=== PATIENT | female | born 1995 | race Caucasian/White ===

== ENCOUNTER 2017-11-30 15:42 | Emergency (ER) | payer BC ==
[~2017-11-30] VITALS: Ht 170.2 cm; Wt 108.8 kg
[2017-11-30 15:52] VITALS: TEMP 36.7; Ht 170.2 cm; Wt 108.8 kg
[2017-11-30] MEDS ORDERED: MoRPHine SULFATE 4 MG/ML 1 ML CARP\\VIAL IV STA (16:08)
[2017-11-30] MEDS ORDERED: SODIUM CHLORIDE 0.9% 1000ML 1,000 ML IV STA (16:08)
[2017-11-30] MEDS ORDERED: KETOROLAC TROMETHAMINE 30 MG/ML VIAL IV STA (16:08)
[2017-11-30] MEDS ORDERED: ONDANSETRON INJ 2 MG/ML 2 ML VIAL IV STA (16:08)
[2017-11-30] MEDS ORDERED: MoRPHine SULFATE 4 MG/ML 1 ML CARP\\VIAL IV PRN (16:15)
[2017-11-30 16:54] LABS: BASO % 0.2 %; BASO ABS # 0.02 K/uL (0-0.2); EOS % 0.5 %; EOS ABS # 0.06 K/uL (0-0.5); HEMATOCRIT 36.4 % (37-47); HEMOGLOBIN 11.7 g/dL (12.0-16.0); IG# 0.04 K/uL (0.00-0.02); LYMPH % 14.4 %; LYMPH ABS # 1.69 K/uL (1.2-3.4); MEAN CELL VOLUME 82.9 fL (80-100); MEAN CORPUSCULAR HEMOGLOBIN 26.7 pg (25-34); MEAN CORPUSCULAR HGB CONC 32.1 g/dl (32-36); MEAN PLATELET VOLUME 9.7 fL (7.4-10.4); MONO % 6.6 %; MONO ABS # 0.78 K/uL (0.11-0.59); NEUT ABS # 9.17 K/uL (1.4-6.5); PLATELET COUNT 364 K/uL (130-400); RED CELL DISTRIBUTION WIDTH CV 14.6 % (11.5-14.5); RED CELL DISTRIBUTION WIDTH SD 44.4 fL (36.4-46.3); WHITE BLOOD COUNT 11.76 K/uL (4.8-10.8)
[2017-11-30 17:19] LABS: CALCIUM 8.9 mg/dl (8.5-10.1); CREATININE 0.66 mg/dl (0.60-1.20); POTASSIUM 3.5 mmol/L (3.5-5.1); TOTAL PROTEIN 7.6 gm/dl (6.4-8.2)
--- NOTE | 2017-11-30 17:24 | DIAGNOSTIC IMAGING REPORT ---
ABDOMEN AND PELVIS CT WITHOUT CONTRAST CT DOSE: 1782.36 mGy.cm HISTORY: Right flank pain. EVALUATE FLANK PAIN/HEMATURIA TECHNIQUE: Multiaxial CT images of the abdomen and pelvis were performed without the use of intravenous and oral contrast according to the standard department stone protocol. A dose lowering technique was utilized adhering to the principles of ALARA. COMPARISON STUDY: None. FINDINGS: There is a 3 mm obstructing stone within the distal right ureter on image 165. This results in mild right hydroureteronephrosis. The bladder is unremarkable. No left-sided hydronephrosis. There are single punctate bilateral renal calculi. The lung bases are clear. No pneumoperitoneum. No pneumatosis. Bilateral L5 spondylolysis. The unenhanced liver, spleen, adrenal glands, gallbladder, and pancreas are unremarkable. No retroperitoneal lymphadenopathy. The uterus and bilateral adnexa are unremarkable. A tampon is noted. Suboptimal evaluation for bowel pathology due to the lack of intravenous and oral contrast. However, there is no definite bowel wall thickening or obstruction. Normal appendix. IMPRESSION: 1. A 3 mm obstructing stone within the distal right ureter resulting in mild right hydroureteronephrosis. 2. Bilateral nephrolithiasis. Electronically signed by: Praveen Watts M.D. 11/30/2017 5:23 PM Dictated Date/Time: 11/30/2017 5:18 PM
[2017-11-30] MEDS ORDERED: BCPILLS PO (17:41)
[2017-11-30] MEDS ORDERED: ONDA4TAB10 SL (17:48)
[2017-11-30] MEDS ORDERED: OXYC-90 PO (17:48)
[2017-11-30 17:52] VITALS: BP 126/69; PULSE 76; O2SAT 96
--- NOTE | 2017-11-30 21:30 | EMERGENCY ROOM VISIT NOTE ---
History First contact with patient: 15:57 Chief Complaint: BACK PAIN Stated Complaint: BACK PAIN, SIDE PAIN History of Present Illness The patient is a 22 year old female who presents to the Emergency Room with complaints of intermittent sharp right flank pain. The patient reports that her pain started on Thursday, and reports that it was severe at that time with nausea and vomiting. The patient reports that the pain did get better over the weekend, but now the pain is increasing again today. The patient reports right lower back pain that radiates around to the groin. She has not noticed any difficulty with urinating. Patient is currently menstruating. She denies . She has not noticed any change in stool consistency or color. She denies any pain extending into the left abdomen, right upper abdomen, chest or neck. The patient denies any prior history of kidney stones or ovarian cysts. She rates her discomfort an 8 out of 10. She has no alleviating or aggravating factors for her pain. Review of Systems HEENT: Denies dizziness, visual problems, hearing loss, tinnitus. Denies difficulty swallowing or oral lesions. PULMONARY: Denies cough, shortness of breath, sputum production or hemoptysis. CARDIOVASCULAR: Denies chest pain, palpitations, dyspnea on exertion, orthopnea or peripheral edema. GASTROINTESTINAL: Denies diarrhea or constipation, otherwise see HPI. GENITOURINARY: Denies dysuria, frequency, urgency or nocturia. NEUROLOGIC: Denies history of epilepsy, CVA, TIA or chronic headaches. MUSCULOSKELETAL: Denies history of joint tenderness/swelling. SKIN: Denies rashes or lesions. PSYCHIATRIC: Denies history of depression or mental illness. ENDOCRINE: Denies history of diabetes or thyroid disorders. Past Medical/Surgical History Medical Problems: (1) No significant past medical history Surgical Problems: (1) No history of previous surgery Social History Smoking Status: Never Smoker Alcohol Use: none Marital Status: Housing Status: lives with family Occupation Status: employed Current/Historical Medications Scheduled Control Pills ( Control Pills), 1 TAB PO DAILY Ondasetron Odt (Zofran Odt), 4 MG SL Q6H Scheduled PRN Oxycodone Ir (Roxicodone Ir), 1 TAB PO Q4H PRN for Pain Physical Exam Vital Signs Date Time Temp Pulse Resp B/P (MAP) Pulse Ox O2 Delivery O2 Flow Rate FiO2 11/30/17 17:52 76 18 126/69 96 Room Air 7/30/18 15:52 36.7 71 19 142/85 97 Room Air Physical Exam CONSTITUTIONAL: Obese female, alert and oriented X 3 with positive affect. Patient appears in mild to moderate discomfort. HEENT: Normocephalic, atraumatic. Pupils equal, round and reactive. No scleral icterus or conjunctival injection/pallor. NECK: Full active range of motion without discomfort. No JVD or carotid bruits. RESPIRATORY: Clear to auscultation bilaterally with no wheezing, crackles, rhonchi or stridor. CARDIOVASCULAR: Regular rate and rhythm with no murmurs, rubs or gallops. GASTROINTESTINAL: Bowel sounds present in all quadrants. Patient has no significant abdominal tenderness to palpation. Negative Stringer sign. Negative McBurney's point tenderness. No rigidity, guarding or rebound. Negative CVA tenderness. MUSCULOSKELETAL: Full range of motion of all joints without discomfort. INTEGUMENTARY: No rash or other significant dermatologic conditions noted. HEMATOLOGIC: No ecchymosis or petechiae appreciated. NEUROLOGIC: No focal neurologic deficits noted. Medical Decision & Procedures ER Provider Diagnostic Interpretation: Noncontrast CT of the abdomen and pelvis shows a 3 mm distal right ureteral calculus with mild hydroureteronephrosis. No obstruction or other acute intra- abdominal findings noted. Additional bilateral renal calculi are noted. Radiologist report is as follows: ABDOMEN AND PELVIS CT WITHOUT CONTRAST CT DOSE: 1782.36 mGy.cm HISTORY: Right flank pain. EVALUATE FLANK PAIN/HEMATURIA TECHNIQUE: Multiaxial CT images of the abdomen and pelvis were performed without the use of intravenous and oral contrast according to the standard department stone protocol. A dose lowering technique was utilized adhering to the principles of ALARA. COMPARISON STUDY: None. FINDINGS: There is a 3 mm obstructing stone within the distal right ureter on image 165. This results in mild right hydroureteronephrosis. The bladder is unremarkable. No left-sided hydronephrosis. There are single punctate bilateral renal calculi. The lung bases are clear. No pneumoperitoneum. No pneumatosis. Bilateral L5 spondylolysis. The unenhanced liver, spleen, adrenal glands, gallbladder, and pancreas are unremarkable. No retroperitoneal lymphadenopathy. The uterus and bilateral adnexa are unremarkable. A tampon is noted. Suboptimal evaluation for bowel pathology due to the lack of intravenous and oral contrast. However, there is no definite bowel wall thickening or obstruction. Normal appendix. IMPRESSION: 1. A 3 mm obstructing stone within the distal right ureter resulting in mild right hydroureteronephrosis. 2. Bilateral nephrolithiasis. Laboratory Results 11/30/17 16:27 Red Blood Count 4.39, Mean Corpuscular Volume 82.9, Mean Corpuscular Hemoglobin 26.7, Mean Corpuscular Hemoglobin Concent 32.1, Mean Platelet Volume 9.7, Neutrophils (%) (Auto) 78.0, Lymphocytes (%) (Auto) 14.4, Monocytes (%) (Auto) 6.6, Eosinophils (%) (Auto) 0.5, Basophils (%) (Auto) 0.2, Neutrophils # (Auto) 9.17, Lymphocytes # (Auto) 1.69, Monocytes # (Auto) 0.78, Eosinophils # (Auto) 0.06, Basophils # (Auto) 0.02 11/30/17 16:27 Test 11/30/17 16:27 11/30/17 16:50 White Blood Count 11.76 K/uL (4.8-10.8) Red Blood Count 4.39 M/uL (4.2-5.4) Hemoglobin 11.7 g/dL (12.0-16.0) Hematocrit 36.4 % (37-47) Mean Corpuscular Volume 82.9 fL (80-100) Mean Corpuscular Hemoglobin 26.7 pg (25-34) Mean Corpuscular Hemoglobin Concent 32.1 g/dl (32-36) Platelet Count 364 K/uL (130-400) Mean Platelet Volume 9.7 fL (7.4-10.4) Neutrophils (%) (Auto) 78.0 % Lymphocytes (%) (Auto) 14.4 % Monocytes (%) (Auto) 6.6 % Eosinophils (%) (Auto) 0.5 % Basophils (%) (Auto) 0.2 % Neutrophils # (Auto) 9.17 K/uL (1.4-6.5) Lymphocytes # (Auto) 1.69 K/uL (1.2-3.4) Monocytes # (Auto) 0.78 K/uL (0.11-0.59) Eosinophils # (Auto) 0.06 K/uL (0-0.5) Basophils # (Auto) 0.02 K/uL (0-0.2) RDW Standard Deviation 44.4 fL (36.4-46.3) RDW Coefficient of Variation 14.6 % (11.5-14.5) Immature Granulocyte % (Auto) 0.3 % Immature Granulocyte # (Auto) 0.04 K/uL (0.00-0.02) Anion Gap 7.0 mmol/L (3-11) Est Creatinine Clear Calc Drug Dose 172.8 ml/min Estimated GFR () 147.4 Estimated GFR (Non- 127.2 BUN/Creatinine Ratio 15.8 (10-20) Calcium Level 8.9 mg/dl (8.5-10.1) Total Bilirubin 0.4 mg/dl (0.2-1) Aspartate Amino Transf (AST/SGOT) 14 U/L (15-37) Alanine Aminotransferase (ALT/SGPT) 18 U/L (12-78) Alkaline Phosphatase 66 U/L (45-117) Total Protein 7.6 gm/dl (6.4-8.2) Albumin 4.0 gm/dl (3.4-5.0) Globulin 3.6 gm/dl (2.5-4.0) Albumin/Globulin Ratio 1.1 (0.9-2) Lipase 109 U/L (73-393) Urine Color YELLOW Urine Appearance CLEAR (CLEAR) Urine pH 6.0 (4.5-7.5) Urine Specific Sterling 1.025 (1.000-1.030) Urine Protein NEG (NEG) Urine Glucose (UA) NEG (NEG) Urine Ketones NEG (NEG) Urine Occult Blood 3+ (NEG) Urine Nitrite NEG (NEG) Urine Bilirubin NEG (NEG) Urine Urobilinogen NEG (NEG) Urine Leukocyte Esterase NEG (NEG) Urine WBC (Auto) 1-5 /hpf (0-5) Urine RBC (Auto) >30 /hpf (0-4) Urine Hyaline Casts (Auto) 1-5 /lpf (0-5) Urine Epithelial Cells (Auto) 5-10 /lpf (0-5) Urine Bacteria (Auto) NEG (NEG) Urine Test NEG (NEG) The above labs were reviewed. Urinalysis is not suggestive of infection. 3+ hematuria is likely secondary to her stone and current menses. A mild leukocytosis is noted. Partial renal profile, LFTs and lipase are otherwise normal. Medications Administered Medications (Trade) Dose Ordered Sig/Naz Route Start Time Stop Time Status Last Admin Dose Admin Sodium Chloride 1,000 ml @ 999 mls/hr Q1H1M STAT IV 11/30/17 16:08 11/30/17 17:08 DC 11/30/17 16:51 999 MLS/HR Ketorolac Tromethamine (Toradol Inj) 30 mg NOW STAT IV 11/30/17 16:08 11/30/17 16:10 DC 11/30/17 16:52 30 MG Ondansetron HCl (Zofran Inj) 4 mg NOW STAT IV 11/30/17 16:08 11/30/17 16:11 DC 11/30/17 16:52 4 MG Morphine Sulfate (MoRPHine SULFATE INJ) 4 mg NOW STAT IV 11/30/17 16:08 11/30/17 16:11 DC 11/30/17 16:52 4 MG Procedure 1. IV hydration: The patient was administered a normal saline 1 L bolus 2. IV medications: Morphine 4 mg, Toradol 30 mg and Zofran 4 mg IVP ED Course Patient history and physical exam were performed. Nurse's notes were reviewed. Vital signs were reviewed, showing a mildly elevated blood pressure 142/85. Patient is otherwise afebrile and not tachycardic. IV access was established, and labs were drawn. The patient was hydrated with normal saline, and was administered IV analgesics and anti-exam as discussed in the previous Procedure section. Review of labs shows a mild leukocytosis. Remaining labs were otherwise normal. Urinalysis shows hematuria without signs of infection. Noncontrast CT of the abdomen and pelvis shows a 3 mm right distal ureteral calculus with mild hydroureteronephrosis. On reevaluation, the patient denied any pain. The patient will be provided a urine strainer. She was encouraged to increase fluid intake. Ibuprofen and Tylenol as needed for baseline pain relief. The patient will be provided a prescription for OxyIR and Zofran as needed for breakthrough pain and nausea. She was instructed to return to the emergency department for any uncontrollable pain, vomiting or developing fever. The patient was happy with plan of care and voiced understanding of all discharge instructions. Medical Decision Patient presents to the emergency department with complaint of abrupt onset right flank pain. Her CT scan does show evidence for a right distal ureteral calculus. She has no signs of infection or renal failure. Clinical exam is not suggestive of peritonitis, appendicitis, pyelonephritis or surgical abdomen. Laboratory studies are also not suggestive of hepatitis, pancreatitis or cholecystitis. I do not suspect cardiopulmonary referred pain. Clinical exam also is not suggestive of musculoskeletal etiology. [facility] Drug Monitoring Program Search Results: patient reviewed within database, no issues identified Medication Reconcilliation Current Medication List: was personally reviewed by me Blood Pressure Screening Patient's blood pressure: Normal blood pressure Impression Primary Impression: Right ureteral calculus Additional Impression: Bilateral nephrolithiasis Departure Information Prescriptions Ondasetron Odt (ZOFRAN ODT) 4 Mg Tab 4 MG SL Q6H for Nausea, #10 TAB Prov: Arsh Ruff PA 11/30/17 Oxycodone Ir (Roxicodone Ir) 5 Mg Tab 1 TAB PO Q4H Y for Pain, #15 TAB For Initial Treatment Prov: Arsh Ruff PA 11/30/17 Patient Instructions My [facility] [address] Problem Qualifiers
== END 2017-11-30 18:15 | disposition home or self-care (01) ==
LOC: C.EDB 15:44 → C.EDC 18:15
DX: N13.2 Hydronephrosis with renal and ureteral calculous obstruction (principal); Z79.3 Long term (current) use of hormonal contraceptives

== ENCOUNTER 2025-01-16 08:00 | Inpatient (IN) ==
[2025-01-16] MEDS ORDERED: ACETAMINOPHEN 325 MG TAB PO PRN ×2 (08:41→21:29)
[2025-01-16] MEDS ORDERED: CALCIUM CARBONATE 500 MG CHEWABLE TAB PO PRN (08:41)
[2025-01-16] MEDS ORDERED: LIDOCAINE 1% LOCAL 20 ML VIAL INFIL PRN (08:41)
[2025-01-16] MEDS ORDERED: OXYTOCIN 30 UNITS/NSS 30 UNITS/500 ML BAG IV PRN ×2 (08:41→21:29)
[2025-01-16] MEDS: LACTATED RINGER'S 1,000 ML IV PRN (09:21)
[2025-01-16] MEDS: PENICILLIN GK 6 MU in DEXTROSE 5% 250 ML IV STA (09:21)
[2025-01-16] MEDS: OXYTOCIN 30 UNITS/NSS 30 UNITS/500 ML BAG IV PRN (09:23)
[2025-01-16 09:57] LABS: Hematocrit (blood only) 32.7 % (37.0-47.0); Hemoglobin 10.9 g/dl (12.0-16.0); Mean Corpuscular Hemoglobin 26.9 pg (25.0-34.0); Mean Corpuscular Volume 80.7 fL (80.0-100.0); Platelet Count 356 K/uL (130-400); RDW Standard Deviation 42.1 fL (36.4-46.3); Red Blood Count 4.05 M/uL (4.20-5.40); White Blood Count 12.34 K/ul (4.8-10.8)
[2025-01-16] MEDS ORDERED: SODIUM CHLORIDE 0.9% 100 ML IV PRN (10:23)
[2025-01-16] MEDS ORDERED: BUPIVACAINE 0.25% PF 30 ML VIAL EPI STA (11:29)
[2025-01-16] MEDS ORDERED: NALBUPHINE HCL INJ 10 MG/ML AMP IV PRN (11:29)
[2025-01-16] MEDS ORDERED: SODIUM CHLORIDE 0.9% PF INJ 10 ML VIAL EPI PRN (11:29)
[2025-01-16] MEDS ORDERED: ROPIVACAINE 0.5% PF 5 MG/ML 20 ML VIAL EPI PRN (11:29)
[2025-01-16] MEDS ORDERED: NALOXONE HCL 1 MG in SODIUM CHLORIDE 0.9% 1,000 ML IV PRN (11:29)
[2025-01-16] MEDS ORDERED: diphenhydrAMINE 50 MG/ML VIAL IV PRN (11:29)
[2025-01-16] MEDS ORDERED: NALOXONE HCL 0.4 MG/1 ML VIAL/CARP IV PRN (11:29)
[2025-01-16] MEDS ORDERED: LIDOCAINE 2% MPF LOCAL 5 ML VIAL EPI PRN (11:29)
[2025-01-16] MEDS ORDERED: BUPIVACAINE 0.25% PF 30 ML VIAL EPI PRN (11:29)
[2025-01-16] MEDS ORDERED: SODIUM CHLORIDE 0.9% PF INJ 10 ML VIAL EPI STA (11:29)
--- NOTE | 2025-01-16 11:29 | Anesthesiology Consultation ---
Date of Service January 16, 2025 Assessment & Plan Chart Review Chart Review: Acceptable Risk for Labor Epidural Consults Requested none History Height/Weight Height: 5 ft 7 in Weight: 131.542 kg Allergies Allergy/AdvReac Type Severity Reaction Status Date / Time No Known Allergies Allergy Verified 01/13/25 13:07 Medications Home Medications Medication Instructions Recorded Confirmed Last Taken 21-iron fu-folic acid PO 06/08/24 01/13/25 Unknown [ Complete] Active Medications Generic Name Dose Route Start Last Admin Trade Name Freq PRN Reason Stop Dose Admin Lactated Ringer's 1,000 mls @ 125 mls/hr 01/16/25 08:41 01/16/25 11:15 Lr IV 01/18/25 08:40 999 mls/hr .Q8H PRN Infusion L&D Protocol Protocol Oxytocin 30 units in 500 mls @ 8 mls/hr 01/16/25 08:42 01/16/25 11:15 Pitocin 30 Units/Nss IV 01/18/25 08:41 0.48 units/hr .Q24H PRN 8 mls/hr Labor Induction/Augmentation Titration Protocol 0.48 UNITS/HR Past Medical History Medical History History of chicken pox Right ureteral calculus Bilateral nephrolithiasis Past Family History Family History Other No pertinent family history Denies family history of Ovarian cancer Breast cancer Colorectal cancer Past Surgical History Surgical History S/P wisdom tooth extraction Social History Smoking Status: Never smoker Do You Dip or Chew Tobacco: No Hx Alcohol Use: No Hx Substance Use: No Physical Exam Vital Signs Last Vital Signs Temp 37.0 C 01/16/25 11:01 Pulse 93 H 01/16/25 11:23 Resp 18 01/16/25 11:01 BP 137/63 01/16/25 11:23 Testing Laboratory Results 01/16/25 09:29 Blood Type A Positive 01/16/25 09:29 Antibody Screen NEGATIVE 01/16/25 09:29
[2025-01-16] MEDS: LIDOCAINE 2%/EPINEPHRINE 1:200,000 20 ML PF EPI STA (12:03)
[2025-01-16] MEDS: fentANYL 2 MCG/ML BUPIVacaine 0.125%-NSS 100ML BAG EPI PRN (12:04)
[2025-01-16] MEDS: SODIUM CHLORIDE 0.9% PF INJ 10 ML VIAL ONE ×2 (12:10→22:04)
[2025-01-16] MEDS: BUPIVACAINE 0.25% PF 30 ML VIAL ONE ×2 (12:10→22:03)
[2025-01-16] MEDS ORDERED: NURSING L&D Epidural Breakthrough Pain Update ONE ×2 (13:11→14:33)
[2025-01-16] MEDS: PENICILLIN GK 3 MU in DEXTROSE 5% 100 ML IV PRN (13:13)
--- NOTE | 2025-01-16 14:55 | Anesthesia Procedure Note ---
Date of Service January 16, 2025 Anesthesia Epidural Re-Dose Vital Signs Temp Pulse Resp BP Pulse Ox 37.0 C 86 16 133/61 99 01/16/25 11:01 01/16/25 14:52 01/16/25 13:30 01/16/25 14:52 01/16/25 14:48 Notes Pain Intensity: 6 Dilatation (cm): 5.0 Effacement (%): 100 Called by nursing to evaluate epidural as the patient is having increased pain. The catheter was removed with the tip intact and replaced. see procedure note. After Epidural Re-Dose Mental Status: alert / awake / arousable and participated in evaluation Pain: improving with treatment and see Notes below Airway Patency, RR, SpO2: stable & adequate BP & HR: stable & adequate Additional Notes:
[2025-01-16] MEDS: LIDOCAINE 2%/EPINEPHRINE 1:200,000 20 ML PF ONE ×2 (14:57→22:04)
[2025-01-16] MEDS: fentANYL 2 MCG/ML BUPIVacaine 0.125%-NSS 100ML BAG ONE ×2 (18:17→22:04)
[2025-01-16 19:13] VITALS: RESP 18
--- NOTE | 2025-01-16 21:06 | Delivery Summary ---
Vaginal Delivery Summary Date of Service January 16, 2025 Vaginal Delivery Summary DIAGNOSES: 1. Tanenr intrauterine at 39w3d gestation. 2. Induction of Labor due to suspected Large for Gestational Age fetus. 3. Group B Streptococcus Pos. PROCEDURE: Spontaneous vaginal delivery and repair of second degree laceration. SURGEON: Joy Mascorro MD. MEDICAL INSTRUMENT TECHNICIAN: None. QUANTITATIVE BLOOD LOSS: 104 mL. COMPLICATIONS: None. PLACENTA: Spontaneous and intact with a 3-vessel cord. DISPOSITION: Stable to labor and delivery. DESCRIPTION: The patient pushed well and brought the head to in OA position. There was no nuchal cord. The right shoulder was anterior. The shoulders and body did not deliver promptly, so Carla and Suprapubic Pressure were implemented. This also did not work with the next two pushes, so the patient was instructed to rest while I attempted to sweep the posterior arm. This was not successful, but before a new maneuver could be started the patient had a contration and began pushing. Suprapubic Pressure was applied again and this time the anterior shoulder did deliver. The posterior shoulder delivered next and the was placed on the maternal abdomen. The cord was doubly clamped by the MD and then cut by the FOB. The placenta delivered spontaneously and was noted to be intact and with a 3VC. The cervix, vagina and perineum were examined and were found to have a second degree laceration which was repaired in the usual manner with vicryl suture, including two crown stitches to rebuild the perineal body. The fundus was firm and lochia minimal immediately after delivery. [facility] Vaginal Delivery Charge Vaginal Delivery Codes: 80192 global code for the antepartum, delivery, and post-
[2025-01-16] MEDS ORDERED: HYDROCORTISONE ACETATE 25 MG SUPP PR PRN (21:29)
[2025-01-16] MEDS: BENZOCAINE 20% SPRY 85 APPLN/85 GM CAN EXT PRN (23:40)
--- NOTE | 2025-01-17 05:46 | Obstetrical Progress Note ---
Date of Service January 17, 2025 Assessment & Plan (1) examination following vaginal delivery: (2) Obesity affecting , antepartum: Plan 30 yo post- day 1 s/p . complicated by obesity and LGA. Feels well today. Vital signs stable Continue post- care Encourage ambulation and Pain controlled with ibuprofen Hgb stable Discharge home tomorrow, follow up with Dr. Mascorro in 6 weeks. Admission and Anticipated Discharge Date Admission Date: January 16, 2025 Supervising Physician Co-Signing Physician Notes Resident Physician Supervision Note: I interviewed and examined the patient. Discussed with Dr. Garcia and agree with findings and plan as documented in the note. Any exceptions or clarifications are listed here: [ ] Documented By: Joy Mascorro MD, FACOG Subjective Alexsandra Lezama is a 30 y/o post- day 1 s/p . was complicated by obesity. Ambulation: ambulating normally Voiding: no voiding problems Passing Gas:: Yes Diet Tolerance:: regular diet Lochia:: Small Feeding Type:: breast feeding Current Pain Level: minimal Resting comfortably this AM in NAD. Denies MARTIN, CP, SOB, N/V/D, LE pain/swelling. Physical Exam Physical Exam: General: patient resting comfortably, NAD, non-toxic in appearance, AA&O x 4, answers questions appropriately. Skin: warm, dry, intact HEENT: NC/AT, anicteric sclera, conjunctiva without injection, moist mucus membranes. Heart: +S1/S2, regular, no m/r/g Lungs: equal air entry bilaterally, no rales/rhonchi/wheezes Abd: +BS, soft, NT/ND, uterine fundus firm at umbilicus Ext: warm, no clubbing/cyanosis or edema, Faye's neg. Neuro: nonfocal, patient AA&O x 4, speech intact, no facial droop, moving all extremities on command. Results & Data Vital Signs (Past 12 Hours) Vital Signs Temp Pulse Pulse Resp BP BP Pulse Ox 01/17/25 03:04 36.4 C L 90 18 140/84 01/17/25 00:00 36.8 C 18 01/16/25 23:39 121 H 142/71 H 01/16/25 22:27 116 H 127/69 01/16/25 22:16 118 H 124/67 01/16/25 22:06 105 H 130/69 01/16/25 22:00 18 01/16/25 21:56 111 H 127/60 01/16/25 21:46 121 H 127/70 01/16/25 21:45 18 01/16/25 21:36 121 H 141/64 H 01/16/25 21:30 18 01/16/25 21:26 115 H 136/63 01/16/25 21:16 123 H 136/64 01/16/25 21:15 18 01/16/25 21:08 123 H 129/60 01/16/25 21:03 98 H 97 01/16/25 21:02 113 H 136/67 01/16/25 21:00 36.8 C 18 01/16/25 20:58 129 H 98 01/16/25 20:53 107 H 139/81 96 01/16/25 20:48 121 H 97 01/16/25 20:43 134 H 97 01/16/25 20:38 97 H 149/66 H 98 01/16/25 20:37 126 H 153/107 H 01/16/25 20:33 166 H 99 01/16/25 20:28 130 H 98 01/16/25 20:23 98 01/16/25 20:23 152 H 01/16/25 20:23 84 142/71 H 01/16/25 20:18 111 H 98 01/16/25 20:13 92 H 99 01/16/25 20:08 87 98 01/16/25 20:07 83 143/64 H 01/16/25 20:03 86 99 01/16/25 19:58 89 99 01/16/25 19:53 91 H 99 01/16/25 19:48 88 99 01/16/25 19:43 96 H 100 01/16/25 19:38 99 H 100 01/16/25 19:37 106 H 156/92 H 01/16/25 19:33 107 H 100 01/16/25 19:31 100 H 162/78 H 01/16/25 19:28 97 H 100 01/16/25 19:23 100 H 99 01/16/25 19:22 93 H 189/91 H 01/16/25 19:18 106 H 100 01/16/25 19:13 107 H 100 01/16/25 19:12 18 01/16/25 19:12 36.8 C 18 01/16/25 19:09 100 H 185/79 H 01/16/25 19:08 101 H 100 01/16/25 19:07 100 H 183/88 H 01/16/25 19:03 100 H 100 01/16/25 19:00 16 01/16/25 19:00 16 01/16/25 18:58 100 H 100 01/16/25 18:53 100 H 100 01/16/25 18:48 101 H 100 01/16/25 18:43 101 H 100 01/16/25 18:38 100 H 100 01/16/25 18:37 90 133/87 01/16/25 18:33 112 H 100 01/16/25 18:30 16 01/16/25 18:30 16 01/16/25 18:28 112 H 100 01/16/25 18:23 100 01/16/25 18:23 102 H 01/16/25 18:23 107 H 144/73 H 01/16/25 18:18 113 H 100 01/16/25 18:13 98 H 100 01/16/25 18:11 95 H 133/71 01/16/25 18:08 95 H 100 01/16/25 18:03 112 H 100 01/16/25 18:00 16 01/16/25 18:00 16 01/16/25 17:58 93 H 100 01/16/25 17:53 92 H 100 01/16/25 17:52 100 H 140/80 01/16/25 17:48 92 H 100
[2025-01-17 06:19] LABS: Hematocrit (blood only) 29.8 % (37.0-47.0); Hemoglobin 9.5 g/dl (12.0-16.0); Mean Corpuscular Hemoglobin 26.1 pg (25.0-34.0); Mean Corpuscular Volume 81.9 fL (80.0-100.0); Platelet Count 337 K/uL (130-400); RDW Standard Deviation 42.5 fL (36.4-46.3); Red Blood Count 3.64 M/uL (4.20-5.40); White Blood Count 19.61 K/ul (4.8-10.8)
[2025-01-17] MEDS: PRENATAL VITAMIN 1 TAB PO SCH (07:21)
[2025-01-17] MEDS: DOCUSATE SODIUM 100 MG CAP PO SCH (07:21)
[2025-01-17] MEDS: IBUPROFEN 600 MG TAB PO PRN (07:21)
--- NOTE | 2025-01-17 08:08 | Anesthesia Procedure Note ---
Date of Service January 17, 2025 Anesthesia Post Epidural Note Vital Signs Vital Signs: Temp Pulse Resp BP Pulse Ox 97.5 F L 90 18 140/84 97 01/17/25 03:04 01/17/25 03:04 01/17/25 03:04 01/17/25 03:04 01/16/25 21:03 Pain Intensity Abdomen: Pain Intensity: 0 Notes Mental Status: alert / awake / arousable and participated in evaluation Nausea / Vomiting: adequately controlled Pain: adequately controlled Airway Patency, RR, SpO2: stable & adequate BP & HR: stable & adequate Hydration State: stable & adequate Neuraxial Anesthesia: was administered and sensory block is resolving Anesthetic Complications: no major complications apparent and Pt Satisfied with anesthetic care Epidural: Removed without complications and With tip intact
[2025-01-17] MEDS: DIPHTHER/TETAN/PERTUS Vaccine (Tdap, Adol/Adult) 0.5mL IM ONE (17:50)
[2025-01-17 20:20] VITALS: O2SAT 99
[2025-01-18 05:59] LABS: Hematocrit (blood only) 28.1 % (37.0-47.0); Hemoglobin 9.3 g/dl (12.0-16.0)
--- NOTE | 2025-01-18 06:15 | Obstetrical Progress Note ---
Date of Service January 18, 2025 Assessment & Plan (1) examination following vaginal delivery: (2) Obesity affecting , antepartum: Plan 30 yo post- day 2 s/p . complicated by obesity and LGA. Feels well today. Vital signs stable Continue post- care Encourage ambulation and Pain controlled with ibuprofen Hgb stable Discharge home today, follow up with Dr. Mascorro in 6 weeks. Admission and Anticipated Discharge Date Admission Date: January 16, 2025 Supervising Physician Co-Signing Physician Notes Resident Physician Supervision Note: I was present with Dr. Garcia during the history and exam. I discussed the case with the resident and agree with the findings and plan as documented in the note. Any exceptions or clarifications are listed here: [None] Documented By: Geetha Irvni, Maryjo Lezama is a 30 y/o post- day 2 s/p . was complicated by obesity and LGA. Ambulation: ambulating normally Voiding: no voiding problems Passing Gas:: Yes Diet Tolerance:: regular diet Lochia:: Small Feeding Type:: breast feeding Current Pain Level: minimal ; she is reporting some muscle soreness in her arms this morning, was reassured that is normal after delivery Resting comfortably this AM in NAD. Denies MARTIN, CP, SOB, N/V/D, LE pain/swelling. Review of Systems Review of Systems: All systems reviewed & are unremarkable except as noted in HPI & below Physical Exam Physical Exam: General: patient resting comfortably, NAD, non-toxic in appearance, AA&O x 4, answers questions appropriately. Skin: warm, dry, intact HEENT: NC/AT, anicteric sclera, conjunctiva without injection, moist mucus membranes. Heart: +S1/S2, regular, no m/r/g Lungs: equal air entry bilaterally, no rales/rhonchi/wheezes Abd: +BS, soft, NT/ND, uterine fundus firm at umbilicus Ext: warm, no clubbing/cyanosis or edema Neuro: nonfocal, patient AA&O x 4, speech intact, no facial droop, moving all extremities on command. Results & Data Vital Signs (Past 12 Hours) Vital Signs Temp Pulse Pulse Resp BP Pulse Ox O2 Del Method 01/17/25 23:15 36.5 C 95 H 18 125/81 99 Room Air 01/17/25 19:45 36.8 C 110 H 18 126/83 99 Room Air
[2025-01-18 08:25] VITALS: TEMP 97.9
[2025-01-18 11:11] VITALS: BP 140/84; PULSE 105
== END 2025-01-18 12:30 | disposition home or self-care (01) | DRG 807 ==
LOC: 4S1 08:00 → 4E2 01-17 00:20